=== PATIENT | female | born 1940 | race Caucasian/White ===

== ENCOUNTER → 2017-07-17 | Outpatient (CLI) | payer BC | LOC: BMCIMAGING 13:27 | PROVIDERS: ATTEND Family Medicine | DX: Z12.31 Encounter for screening mammogram for malignant neoplasm of breast (principal); M85.80 Other specified disorders of bone density and structure, unspecified site; Z80.3 Family history of malignant neoplasm of breast | CPT/HCPCS: G0202 ==

== ENCOUNTER → 2018-12-08 | Outpatient (CLI) | payer BC, OTHER | LOC: FIMAGING 14:39 | PROVIDERS: ATTEND Orthopaedic Surgery | DX: Z01.818 Encounter for other preprocedural examination (principal); M17.12 Unilateral primary osteoarthritis, left knee ==

== ENCOUNTER 2019-01-05 07:37 | Day surgery (SDC) | payer BC, OTHER ==
--- NOTE | 2018-12-25 10:06 | GHP ---
[f rep st] PREOP HISTORY AND PHYSICAL PATIENT NAME: Mary Jane Mchugh DATE OF : She will be an outpatient at [facility] on January 05, 2019. PROBLEMS: Left knee medial compartment degenerative arthritis. HISTORY OF PRESENT ILLNESS: The patient is a 78-year-old woman, admitted for a left knee medial comp artment hemiarthroplasty. I did her right knee medial compartment Michael hemiarthroplasty in April. She has had progressive pain in her left knee. She has had cortisone injections. She uses ibu profen for strenuous activities. She is still hiking, and biking. She feels like her strength, and balance are diminishing. She has an excellent result on the right knee. She will undergo a left kne e medial compartment Michael hemiarthroplasty. PAST MEDICAL HISTORY: 1. She has had a previous total abdominal hysterectomy for uterine cancer. 2. She is treated for hypothyroidism, and elevated cholesterol. CURRENT MEDICATIONS: 1. Levothyroxine daily. 2. Raloxifene 60 mg a day for bone density. 3. Simvastatin daily for cholesterol. 4. She takes a baby aspirin every day, but she will stop that in preparation for the surgery. ALLERGIES: Vicodin causes dizziness, and nausea. SOCIAL HISTORY: The patient is . She does not smoke. She is retired. She likes to hike, bi ke, ski, and fish. FAMILY HISTORY: Positive for coronary artery disease, cancer, and arthritis. PHYSICAL EXAMINATION: GENERAL: She is an alert, healthy-appearing elderly woman. VITALS: Height 5 feet 6 inches, weight 130 pounds. BMI 21. EYES: The conjunctivae and sclerae are clear. Pupils a re round and reactive. MOUTH: Good oral hygiene. No loose teeth. CHEST: Clear. HEART: Regular rhythm. No murmurs. EXTREMITIES: Pertinent findings are limited to her left knee. She lacks a few degrees of full extension, and has further flexion to 125 degrees. She is tender along the medial j oint line. Mild popliteal tenderness. Her patella is not tender. Her patella tracks properly. No significant patellofemoral crepitation with active knee extension. She has slight varus alignment. IMPRESSION: 1. Left knee medial compartment degenerative arthritis. She is prepared for a medial compartment Ma ko hemiarthroplasty. 2. Three and a half years status post successful right knee medial compartment Michael hemiarthroplasty . 3. Treatment for elevated cholesterol, and hypothyroidism. PLAN: She will undergo a left knee medial compartment Michael hemiarthroplasty. The surgery has been d escribed to her, including the risks, complications, expectations, and recovery time. I have stresse d the importance of postoperative physical therapy. She wants to be an outpatient. She will go to [facility] in [facility]. I have advised her that with bilateral procedures, there can be mild [id number] differences in the recovery, and even in the final result . All her questions have been answered, and she consents to surgery. /[id number]/MODL
[~2019-01-05 07:37] MED LIST: POVIDONE-IODINE 20 ML in SODIUM CL IRRIG SOLUTION 500 ML IRR ONE; ROPIVACAINE 0.2% 80 MG, EPINEPHrine 0.2 MG, KETOROLAC TROMETHAMINE 30 MG in SYRINGE 0 ML IU ONE; TRANEXAMIC ACID 1,000 MG in NS 100 ML IV ONE; TRANEXAMIC ACID 3,000 MG in NS (SYRINGE) 50 ML IRR ONE
[2019-01-05] MEDS ORDERED: GABAPENTIN 300 MG CAP PO ONE (07:45)
[2019-01-05] MEDS ORDERED: FAMOTIDINE 20 MG TAB PO ONE (07:45)
[2019-01-05] MEDS ORDERED: ONDANSETRON 4 MG/2 ML VIAL IVP ONE (07:45)
[2019-01-05] MEDS ORDERED: DEXAMETHASONE 4 MG/ML VIAL IVP ONE (07:45)
[2019-01-05] MEDS ORDERED: ceFAZolin 2 GM/DEXTROSE 100 ML IV ONE (07:45)
[2019-01-05] MEDS ORDERED: ACETAMINOPHEN 325 MG TAB PO ONE (07:45)
[2019-01-05] MEDS ORDERED: LR 1,000 ML IV ONE (07:48)
[2019-01-05] MEDS ORDERED: ceFAZolin 1 GM/5 ML SYR ONE (08:56)
[2019-01-05] MEDS ORDERED: VANCOMYCIN 1 GM VIAL ONE (08:56)
[2019-01-05] MEDS ORDERED: TRANEXAMIC ACID 3,000 MG/50 ML BAG IRR ONE (08:56)
--- NOTE | 2019-01-05 09:39 | PDHPUP ---
History & Physical Update H&P update statement: This history and physical update is based on an assessment of the patient which was completed after admission or registration (within 24 hours), but prior to the surgery/procedure. H&P update: H&P reviewed & patient examined
[2019-01-05] MEDS ORDERED: diphenhydrAMINE 25 MG CAP PO PRN (10:06)
[2019-01-05] MEDS ORDERED: ONDANSETRON DISINTEGRATING 4 MG TAB PO PRN (10:06)
[2019-01-05] MEDS ORDERED: PROMETHAZINE HCL 25 MG/ML INJ IVP PRN (10:06)
[2019-01-05] MEDS ORDERED: TEMAZEPAM 15 MG CAP PO PRN (10:06)
[2019-01-05] MEDS ORDERED: POLYETHYLENE GLYCOL 3350 17 GM PKT PO PRN (10:06)
[2019-01-05] MEDS ORDERED: BISACODYL 10 MG SUPP PR PRN (10:06)
[2019-01-05] MEDS ORDERED: LACTULOSE 20 GM/30 ML UDCUP PO PRN (10:06)
[2019-01-05] MEDS ORDERED: NS 500 ML IV PRN (10:06)
[2019-01-05] MEDS ORDERED: METOCLOPRAMIDE 10 MG/2 ML VIAL IVP PRN (10:06)
[2019-01-05] MEDS ORDERED: DIPHENOXYLATE/ATROPINE LOMOTIL 1 TAB PO PRN (10:06)
[2019-01-05] MEDS ORDERED: ONDANSETRON 4 MG/2 ML VIAL IVP PRN (10:06)
[2019-01-05] MEDS ORDERED: PROMETHAZINE HCL 25 MG SUPPR PR PRN (10:06)
[2019-01-05] MEDS ORDERED: MAGNESIUM HYDROXIDE 30 ML UDCUP PO PRN (10:06)
[2019-01-05] MEDS ORDERED: CYCLOBENZAPRINE 10 MG TAB PO PRN (10:06)
[2019-01-05] MEDS ORDERED: BUPIVACAINE/DEXTROSE 7.5MG/ML 2 ML SPINAL AMP SP ONE (10:25)
[2019-01-05] MEDS ORDERED: LR 1,000 ML IV SCH (10:30)
--- NOTE | 2019-01-05 10:44 | PDANEPAE ---
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 CAD PER NOTES, PT DENIES ANY HEART PROB. HYPERLIPIDEMIA. MET 6 ACTIVITIES - Pulmonary History Hx COPD: No Hx Asthma/Reactive Airway Disease: No Hx Recent Upper Respiratory Infection: No Hx Oxygen in Use at Home: No Hx Sleep Apnea: No Sleep Apnea Screening Result - Last Documented: Negative Pulmonary History Comment: DENIES SOB W STAIRS - Neurologic History Hx Cerebrovascular Accident: No Hx Seizures: No Hx Dementia: No - Endocrine History Hx Diabetes: No Endocrine History Comment: HYPOTHYROID - Renal History Hx Renal Disorders: No - Liver History Hx Hepatic Disorders: No - Neurological & Psychiatric Hx Hx Neurological and Psychiatric Disorders: No Neurological / Psychiatric History Comment: RAYNAUDS - Cancer History Hx Cancer: Yes Cancer History Comment: UTERINE CA - Congenital Disorder History Hx Congenital Disorders: Yes Congenital History Comment: SMALL SIZED HEART - GI History Hx Gastrointestinal Disorders: Yes Gastrointestinal History Comment: POLYPS - Other Health History Other Health History: LYMPHEDEMA L LEG. VITILIGO - Chronic Pain History Chronic Pain: Yes (R KNEE) - Surgical History Prior Surgeries: CATARACTS BLADIMIR. HYST FOR UTERINE CA 2013. FX R ARM REP W HARDWARE. HARDWARE REM ANE Review of Systems Review of Systems: - Exercise capacity METS (RN): 6 METS ANE Patient History - Allergies Allergies/Adverse Reactions: hydrocodone bitartrate [From Vicodin] Allergy (Unknown, Verified 12/10/18 16:13) Vomiting/Dizzy - Home Medications Home Medications: Herbals/Supplements -Info Only 1 ea PO DAILY 05/09/15 [Last Taken 1 Week Ago ~] Levothyroxine [Synthroid 137 mcg (*)] 137 mcg PO SUTUWEFRSA@05/09/15 [Last Taken 05/14/15] Levothyroxine [Synthroid 150 mcg (*)] 150 mcg PO MOTH@05/09/15 [Last Taken ] Multivitamins [Multivitamin (*)] 1 each PO DAILY 05/09/15 [Last Taken 1 Week Ago ~12/29/18] Raloxifene HCl [Evista] 60 mg PO DAILY 05/09/15 [Last Taken 01/04/19] Simvastatin [Zocor] 20 mg PO HS 05/09/15 [Last Taken 01/04/19] Ibuprofen [Motrin (*)] 200 mg PO DAILY PRN 12/03/18 [Last Taken 1 Week Ago ~04/11] - NPO status NPO Since - Liquids (Date): 01/04/19 NPO Since - Liquids (Time): 18:00 NPO Since - Solids (Date): 01/03/19 NPO Since - Solids (Time): 18:00 - Smoking Hx Smoking Status: Never smoked - Family Anes Hx Family Hx Anesthesia Complications: NONE ANE Labs/Vital Signs - Vital Signs Blood Pressure: 143/67 Heart Rate: 58 Respiratory Rate: 16 O2 Sat (%): 96 Height: 168.28 cm Weight: 58.06 kg ANE Physical Exam - Airway Neck exam: FROM Mallampati Score: Class 2 Mouth exam: normal dental/mouth exam - Pulmonary Pulmonary: clear to auscultation - Cardiovascular Cardiovascular: regular rate and rhythym - ASA Status ASA Status: II ANE Anesthesia Plan Anesthesia Plan: spinal
[2019-01-05] MEDS ORDERED: LIDOCAINE 2% 5 ML SDV ONE (10:45)
[2019-01-05] MEDS ORDERED: PROPOFOL/EMULSION 500 MG/50 ML BOTTLE IV ONE (10:45)
[2019-01-05] MEDS ORDERED: ROPIVACAINE HCL 150 MG/30 ML INJ ONE (11:48)
[2019-01-05] MEDS ORDERED: ACETAMINOPHEN 325 MG TAB PO SCH (12:00)
--- NOTE | 2019-01-05 12:15 | POSTOPPROG ---
Post Op Note Date of Operation: 01/05/19 Surgeon: Rory Pearl Back Roller: Javi Topete Anesthesiologist: Salty Anesthesia: GET(General Endotracheal) Post-op Diagnosis: Left knee medial compartment degenerative arthritis. Left knee medial comp Procedure: Left knee medial compartment Michael assisted hemiarthroplasty. Inf/Abcess present in the surg proc area at time of surgery?: No EBL: 50-100 (Adductor canal block in PACU.)
--- NOTE | 2019-01-05 12:51 | GOP ---
[f rep st] OPERATIVE REPORT DATE OF OPERATION: 01/05/2019 SURGEON: Rory Pearl MD NEUROSURGEON: Rory Pearl MD. RESIDENT CARE SPEC: Javi Topete CFA. ANESTHESIA: Spinal anesthetic. ANESTHESIOLOGIST: Dr. Anibal Pond. PREOPERATIVE DIAGNOSIS: Left knee medial compartment degenerative arthritis. POSTOPERATIVE DIAGNOSIS: Left knee medial compartment degenerative arthritis. PROCEDURE PERFORMED: Left knee medial compartment Michael-assisted hemiarthroplasty. FINDINGS: DESCRIPTION OF PROCEDURE: The patient was given 2 g of preoperative IV Ancef within 60 minutes of antunez rgery. She also received 1000 mg of IV tranexamic acid. She was placed on the operating room table and given spinal anesthesia with Marcaine by Dr. Pond. She was then placed supine. At her request, she did not receive IV sedation. A Mejía catheter was not used. She wore a CIARA stocking and SCD on the nonoperative leg. Her right lower extremity was prepped with ChloraPrep from the upper thigh to urniquet to the tips of the toes. It was draped free using sterile sheets, towels and Ioban plastic drape. The World Health Organization time-out was performed to verify the correct surgical side and site and the correct patient identity. The [place] time-out was also performed. The [employer] leg hold ing device was sterilely attached to the operating room table and used throughout the procedure to he lp position the knee. Two bicortical 3 mm partially-threaded pins were inserted in the anteromedial cortex of the femur stefania roximately 4 to 5 inches proximal to the superior pole of the patella. They were inserted with the k nee in 90 degrees of flexion. Two bicortical 3 mm partially-threaded pins were inserted into the ant eromedial cortex of the tibia about 4 to 5 inches distal to the tibial tubercle. The computer arrays were attached to both sets of pins. I confirmed that both arrays were visualized by the computer. Her leg was exsanguinated with a 6-inch compressive wrap and the pneumatic tourniquet was inflated to 250 mmHg. I made a 5-inch straight midline incision. Subcutaneous tissues were sharply divided and hemostasis was obtained using electrocautery. The capsule and synovium were opened in a medial parapatellar fas hion. The medial capsule and periosteum were lightly elevated off the rim of the medial tibial plate au. She had very severe degenerative changes in her medial compartment. She was eroded down to subc hondral bone on the medial femoral condyle and the medial tibial plateau. She had some grade 1 and g rade 2 articular cartilage damage on the medial facet of her patella and on the medial femoral sulcus . The articular surface in the lateral compartment was in good condition. I released her medial col lateral ligament only a slight amount to balance the medial side of the knee. The anterior portion o f her medial meniscus was excised along with a small portion of the fat pad. The femoral and tibial checkpoints were inserted, checked and confirmed. I then performed hip regist ration followed by registration of the medial lateral malleoli. The bony anatomy of the medial femor al condyle and medial tibial plateau were registered. Joint balancing was checked and captured in multiple degrees of flexion from 10 degrees of flexion to 100 degrees of flexion. I used a curved osteotome in the medial compartment to tension her medial c ollateral ligament. Implant position and templating were performed. I externally rotated the femora l component 1 degree. I also translated the femoral component anteriorly 1 mm. This gave me 1 mm of laxity in 10 degrees of flexion, zero laxity in 60 degrees of flexion and 1 mm laxity in 90 degrees of flexion. I confirmed the preoperative plan for a size 3 femur and a size 3 tibia. Osteophytes we re removed from her medial femoral condyle edge prior to joint balancing. The robotic arm was registered. The femur was burred first. This was followed by burring of the tib ial plateau. The articular surfaces were trimmed with a rongeur. Independence holes in the femur and tibi a were completed. I excised the posterior horn of her medial meniscus. I did a trial reduction. The size 3 tibia and size 3 femur were correct. I thought the 8 mm polyeth ylene insert was a little too loose, so I then tried a 9 mm. This gave me excellent medial balance i n 90 degrees of flexion and 10 degrees of flexion. She came to full extension and flexed to 135 degr ees. Her medial collateral ligament felt properly tensioned throughout the range of motion. The surfaces were prepared for cementing. They were carefully cleaned with the pulsating lavage. Th e CarboJet device was used to blow dry the cancellous surfaces. A single batch of high-viscosity met hylmethacrylate cement with 1 g of added vancomycin was mixed. While it was still in a doughy state, I packed the peg holes on the tibial surface and layered a small amount of cement on the undersurfac e of the tibial tray. The tray was inserted and tapped securely into place. Excess cement was remov ed before it hardened. I made sure there was no residual cement around the back of the tibial compon ent. I then packed a small amount of cement in the PEG holes of the femur and added some additional cement onto the back of the femoral component. This was inserted and tapped securely into place. Ex cess cement was removed before it hardened. I had a smooth transition from the intact anterior carti solange to the metal surface of the femoral component anteriorly. The size 3, 9 mm tibial insert was in serted. It was locked into place without difficulty. Tension was held on the knee while the cement hardened. Excess cement was removed before it hardened. She had full extension and flexed to 135 degrees. The tourniquet was deflated and the total tourniquet time was 49 minutes. The tibial and femoral lane ckpoints were removed. Two pins in the femur and 2 pins in the tibia were removed. 40 mL of the raudel nt anesthetic cocktail was injected into the medial capsule, the vastus medialis tendon and muscle ar eas and the subcutaneous tissues along the skin edges. 50 mL of tranexamic acid solution was irrigat ed into the joint. Prior to use of the tranexamic acid, the knee was thoroughly irrigated with a dil ronnie Betadine solution. The vastus medialis portion of the extensor mechanism was repaired with sever al interrupted [id number] #2 FiberWire sutures. The capsule and synovium were closed first with multiple interrupted [id number] 0 PDS sutures followed by a running #2 barbed Ethicon Stratafix PDO suture. Subcutaneous tissues were closed with a running 0 barbed Ethicon Stratafix Monoderm sut ure. The skin was closed with a running 3-0 barbed Ethicon Stratafix Monoderm subcuticular suture. The skin edges were reapproximated and sealed with half-inch Steri-Strips. The puncture wounds for t he femur were closed with 1 each interrupted 3-0 Monocryl suture. The tibial puncture wounds were co jovanny with half-inch Steri-Strips. The wound was covered with a piece of sterile Mepilex waterproof dressing. This was followed by the 6-inch compressive wrap. A long-leg CIARA stocking was applied fol lowed by the cooling device. She wore a CIARA stocking and sequential compression device on the opposi te leg during the procedure. The sacral Mepilex dressing was applied. The sponge and needle counts were correct on 2 occasions. The femoral and tibial checkpoints were re moved. I used a Mihcael Restoris MCK femoral component size 3. The tibial component was a Michael Restoris MCK in size 3. The tibial insert was a size 3 with 9 mm of thickness. Javi Topete acted as surgical dental assistant. His assistance was a medical necessity for safe completio n of the procedure. In the PACU, for additional postoperative pain control, Dr. Pond performed a 1 shot adductor canal b lock. /[id number]/MODL
[2019-01-05] MEDS ORDERED: ceFAZolin 2 GM/DEXTROSE 100 ML IV SCH (14:00)
[2019-01-05 15:35] VITALS: BP 132/94
[2019-01-05] MEDS ORDERED: ASPIRIN 325 MG TAB PO SCH (21:00)
[2019-01-05] MEDS ORDERED: FAMOTIDINE 20 MG TAB PO SCH (21:00)
[2019-01-05] MEDS ORDERED: SENNOSIDES/DOCUSATE SODIUM TAB PO SCH (21:00)
[2019-01-05] MEDS ORDERED: ATORVASTATIN CALCIUM 10 MG TAB PO SCH (21:00)
[2019-01-06] MEDS ORDERED: LEVOTHYROXINE 137 MCG TAB PO SCH (06:00)
[2019-01-06] MEDS ORDERED: RALOXIFENE HCL 60 MG TAB PO SCH (09:00)
[2019-01-06] MEDS ORDERED: MULTIVITAMINS 1 EACH TAB PO SCH (09:00)
[2019-01-07] MEDS ORDERED: LEVOTHYROXINE 150 MCG TAB PO SCH (06:00)
== END 2019-01-05 15:10 | disposition home or self-care (01) ==
LOC: F1N 07:37 → UNDOADMOB 07:37 → FSGY 07:37 → F3N 08:36 → F1N 08:36 → EDSTATUS 09:00 → UNDODISOB 15:10 → FSGY 15:10
PROVIDERS: ATTEND Orthopaedic Surgery
PROC: 8E0Y0CZ Robotic Assisted Procedure of Lower Extremity, Open Approach (ICD-10-PCS; principal; 2019-01-05 09:00)
PROC: 0SRD0J9 Replacement of Left Knee Joint with Synthetic Substitute, Cemented, Open Approach (ICD-10-PCS; principal; 2019-01-05 09:00)
DX: M17.12 Unilateral primary osteoarthritis, left knee (principal); E03.9 Hypothyroidism, unspecified; E78.5 Hyperlipidemia, unspecified; Z79.82 Long term (current) use of aspirin; Z85.42 Personal history of malignant neoplasm of other parts of uterus; Z82.49 Family history of ischemic heart disease and other diseases of the circulatory system; Z96.651 Presence of right artificial knee joint; Z90.710 Acquired absence of both cervix and uterus
CPT/HCPCS: C1713; J0171; J0690; J1100; J1885; J2405; J2704; J2795; J3370